=== PATIENT | female | born 1990 | race African-American/Black ===

== ENCOUNTER 2019-03-28 13:11 | Inpatient (IN) ==
[2019-03-28 13:47] LABS: Apearance,Urine CLEAR (Clear); Bilirubin,Urine Negative (Negative); Blood, Urine Negative (Negative); Glucose,Urine (UA) Negative (Negative); Ketones,Urine Negative (Negative); Mucus,Urine Occasional /LPF (Occasional); Nitrite,Urine Negative (Negative); Protein,Urine Negative; RBC,Urine 4 /HPF (0-4); Squamous Epithelial Cell,Urine Occasional /HPF (0-10); Urine Color Yellow (Yellow); Urine Specific Gravity 1.021 (1.001-1.035); Urine Urobilinogen < 2.0 EU/DL (0.2-1.0); WBC,Urine 1 /HPF (0-6)
[2019-03-28 15:38] LABS: Basophils % 0.5 % (0.0-0.8); Eosinophils # 0.1 10*3/uL (0.0-0.87); Eosinophils % 1.9 % (0.00-10.9); Hematocrit 36.5 VOL% (35.7-47.0); Hemoglobin 11.7 GM/DL (12.0-16.0); Immature Granulocytes Absolute 0.06 #; Lymphocytes # 1.8 10*3/uL (1.4-4.0); Lymphocytes % 29.9 % (21.3-54.2); Mean Corpuscular HGB Conc 32.1 GM/DL (32-36); Mean Corpuscular Volume 84.3 FL (87-102); Mean Platelet Volume 12.1 FL (9.6-12.0); Monocytes % 9.1 % (1.7-12.7); Neutrophils % 57.6 % (38.7-73.9); Platelet Count 170 T/CUMM (130-400); Red Blood Count 4.33 MC/CUMM (3.8-5.5); Red Cell Distribution Width 14.5 % (9.3-17.3); White Blood Count 6.2 T/CUMM (4-12)
[2019-03-28 15:47] LABS: INR 0.9; PT Patient Result 9.3 SECS (9.6-12.2)
[2019-03-28 16:03] LABS: Alanine Aminotransferase 16 U/L (13-56); Albumin 2.7 G/DL (3.4-5.0); Alkaline Phosphatase 108 U/L (45-117); Aspartate Amino Transferase 16 U/L (0-37); Bilirubin,Total < 0.39 MG/DL (0.2-1.0); Blood Urea Nitrogen 9 MG/DL (7-18); Calcium 8.4 MG/DL (8.5-10.1); Estimated Glom Filtration Rate 143 ML/MIN; Glucose 67 MG/DL (74-106); Osmolality,Calculated 273.5 MOS/KG (273-304); Total Protein 6.9 G/DL (6.4-8.3); Uric Acid 6.7 MG/DL (2.6-6.0)
[2019-03-28] MEDS ORDERED: BUTORPHANOL 2 MG/ML VIAL IV PRN (16:49)
[2019-03-28] MEDS ORDERED: ONDANSETRON 4 MG/2 ML VIAL IV PRN (16:49)
[2019-03-28] MEDS: LACTATED RINGERS 1,000 ML IV SCH ×2 (17:31→22:19)
[2019-03-28] MEDS ORDERED: ePHEDrine 50 MG/ML AMP IV PRN (21:28)
[2019-03-28] MEDS ORDERED: FAMOTIDINE 20 MG/2 ML VIAL IV ONE (21:28)
[2019-03-28] MEDS ORDERED: CITRIC ACID/SODIUM CITRATE 30 ML UDCUP PO ONE (21:28)
[2019-03-28] MEDS ORDERED: PROMETHAZINE 25 MG/1 ML VIAL IM ONE (21:28)
[2019-03-28] MEDS ORDERED: NALOXONE 0.4 MG/ML VIAL IV PRN (21:28)
[2019-03-28] MEDS ORDERED: LACTATED RINGERS 1,000 ML IV ONE (21:28)
[2019-03-28] MEDS ORDERED: diphenhydrAMINE 50 MG/1 ML VIAL IV PRN (21:28)
[2019-03-28] MEDS ORDERED: fentaNYL 2 MCG/ROPIV 0.2% EPID 100 ML EPIDURAL SCH (21:30)
[2019-03-28] MEDS ORDERED: LACTATED RINGERS 1,000 ML IV SCH (21:30)
[2019-03-28] MEDS ORDERED: MAGNESIUM SULF DRIP 40 GM/1,000 ML ML IV SCH (22:00)
[2019-03-28] MEDS: LABETALOL 100 MG TABLET PO SCH (22:17)
[2019-03-28] MEDS ORDERED: miSOPROStoL 200 MCG TABLET ONE (23:46)
[2019-03-28] MEDS ORDERED: TRANEXAMIC ACID 1,000 MG/10 ML VIAL ONE ×2 (23:46→23:47)
[2019-03-28] MEDS ORDERED: OXYTOCIN/LR 20 UNIT/1,000 ML BAG IV ONE ×2 (23:46→23:58)
[2019-03-28] MEDS ORDERED: METHYLERGONOVINE 0.2 MG/1 ML AMP ONE (23:47)
[2019-03-28] MEDS ORDERED: SODIUM CHLORIDE 0.9% 0 ML IV ONE (23:47)
[2019-03-28] MEDS ORDERED: CARBOPROST TROMETHAMINE 250 MCG/ML AMP IM ONE (23:48)
[2019-03-28] MEDS ORDERED: TERBUTALINE 1 MG/1 ML VIAL SUBCUT ONE (23:52)
[2019-03-29] MEDS ORDERED: TERBUTALINE 1 MG/1 ML VIAL SUBCUT ONE (00:55)
[2019-03-29] MEDS ORDERED: ceFAZolin 2,000 MG in PREMIX 1 EACH IV ONE (00:59)
[2019-03-29] MEDS ORDERED: TISSUE ADHESIVE 1 EACH APPLICATOR TOP ONE (02:12)
[2019-03-29] MEDS ORDERED: LIDOCAINE MPF 2% /EPI 20 ML VIAL ONE (02:29)
[2019-03-29] MEDS ORDERED: MIDAZOLAM 2 MG/2 ML VIAL ONE (02:29)
[2019-03-29 02:41] LABS: Cord Arterial Blood HCO3 16.3 MMOL/L
[2019-03-29 02:42] LABS: Cord Venous Blood HCO3 22.7 MMOL/L; Cord Venous Blood PCO2 49.5 MMHG; Cord Venous Blood PO2 23.8 MMHG
[2019-03-29] MEDS: HYDROmorphone 2 MG/1 ML VIAL IV SCH ×2 (03:22→08:30)
[2019-03-29] MEDS ORDERED: ACETAMINOPHEN INJ 1,000 MG in PREMIX 1 EACH IV ONE (04:38)
[2019-03-29] MEDS ORDERED: OXYTOCIN/LR 20 UNIT/1,000 ML BAG IV ONE (04:55)
[2019-03-29] MEDS ORDERED: ONDANSETRON 4 MG/2 ML VIAL IV PRN (04:55)
[2019-03-29] MEDS ORDERED: RHO(D) IMMUNE GLOBULIN 300 MCG SYRINGE IM ONE (04:55)
[2019-03-29] MEDS ORDERED: ACETAMINOPHEN 325 MG TABLET PO PRN (04:55)
[2019-03-29] MEDS ORDERED: LACTATED RINGERS 1,000 ML IV SCH (05:00)
[2019-03-29] MEDS: KETOROLAC 30 MG/1 ML VIAL IV SCH ×4 (05:05→23:26)
[2019-03-29] MEDS: IBUPROFEN 800 MG TABLET PO PRN (08:45)
[2019-03-29] MEDS: LABETALOL 100 MG TABLET PO SCH (08:48)
[2019-03-29] MEDS: MULTIVITAMIN (PRENATAL) TABLET PO SCH (08:48)
[2019-03-29] MEDS: DOCUSATE SODIUM 100 MG CAPSULE PO SCH ×2 (08:48→21:09)
[2019-03-29] MEDS: ceFAZolin 1,000 MG in SYRINGE 1 EACH IV SCH ×2 (09:35→17:33)
[2019-03-29 09:40] LABS: Basophils % 0.2 % (0.0-0.8); Eosinophils % 0.1 % (0.00-10.9); Hematocrit 29.8 VOL% (35.7-47.0); Hemoglobin 9.4 GM/DL (12.0-16.0); Immature Granulocytes % 0.5 %; Immature Granulocytes Absolute 0.05 #; Lymphocytes # 1.4 10*3/uL (1.4-4.0); Lymphocytes % 12.7 % (21.3-54.2); Mean Corpuscular HGB Conc 31.5 GM/DL (32-36); Mean Corpuscular Volume 85.1 FL (87-102); Mean Platelet Volume 11.4 FL (9.6-12.0); Monocytes % 7.4 % (1.7-12.7); Neutrophils % 79.1 % (38.7-73.9); Platelet Count 151 T/CUMM (130-400); Red Cell Distribution Width 14.6 % (9.3-17.3); White Blood Count 10.9 T/CUMM (4-12)
[2019-03-29] MEDS: SIMETHICONE CHEW 80 MG TABLET PO PRN ×2 (13:17→21:09)
[2019-03-29] MEDS: MAGNESIUM HYDROXIDE SUSP 30 ML UDCUP PO PRN ×2 (14:57→21:09)
[2019-03-30] MEDS: LABETALOL 100 MG TABLET PO SCH ×3 (00:47→20:51)
[2019-03-30 06:00] LABS: Basophils % 0.2 % (0.0-0.8); Eosinophils # 0.1 10*3/uL (0.0-0.87); Eosinophils % 0.7 % (0.00-10.9); Hematocrit 25.7 VOL% (35.7-47.0); Hemoglobin 8.3 GM/DL (12.0-16.0); Immature Granulocytes % 0.8 %; Immature Granulocytes Absolute 0.07 #; Lymphocytes # 1.5 10*3/uL (1.4-4.0); Lymphocytes % 17.5 % (21.3-54.2); Mean Corpuscular HGB Conc 32.3 GM/DL (32-36); Mean Corpuscular Volume 85.4 FL (87-102); Mean Platelet Volume 11.6 FL (9.6-12.0); Monocytes % 7.6 % (1.7-12.7); Neutrophils % 73.2 % (38.7-73.9); Platelet Count 143 T/CUMM (130-400); Red Blood Count 3.01 MC/CUMM (3.8-5.5); Red Cell Distribution Width 15.1 % (9.3-17.3); White Blood Count 8.7 T/CUMM (4-12)
[2019-03-30] MEDS: MAGNESIUM HYDROXIDE SUSP 30 ML UDCUP PO PRN ×3 (09:15→20:51)
[2019-03-30] MEDS: FERROUS SULFATE 325 MG TABLET PO SCH ×2 (09:15→20:51)
[2019-03-30] MEDS: DOCUSATE SODIUM 100 MG CAPSULE PO SCH ×2 (09:15→20:50)
[2019-03-30] MEDS: MULTIVITAMIN (PRENATAL) TABLET PO SCH (09:15)
[2019-03-30] MEDS ORDERED: MAGNESIUM CITRATE 300 ML BOTTLE PO ONE (12:31)
[2019-03-30] MEDS ORDERED: BISACODYL 10 MG SUPP RECTAL ONE (13:00)
[2019-03-30 13:35] LABS: Basophils % 0.2 % (0.0-0.8); Eosinophils # 0.1 10*3/uL (0.0-0.87); Eosinophils % 0.6 % (0.00-10.9); Hematocrit 28.5 VOL% (35.7-47.0); Hemoglobin 8.8 GM/DL (12.0-16.0); Immature Granulocytes % 0.7 %; Immature Granulocytes Absolute 0.07 #; Lymphocytes # 1.5 10*3/uL (1.4-4.0); Lymphocytes % 15.5 % (21.3-54.2); Mean Corpuscular HGB Conc 30.9 GM/DL (32-36); Mean Corpuscular Volume 87.7 FL (87-102); Mean Platelet Volume 10.8 FL (9.6-12.0); Monocytes % 7.1 % (1.7-12.7); Neutrophils % 75.9 % (38.7-73.9); Platelet Count 155 T/CUMM (130-400); Red Blood Count 3.25 MC/CUMM (3.8-5.5); Red Cell Distribution Width 15.2 % (9.3-17.3)
[2019-03-30 13:45] LABS: INR 0.9; PT Patient Result 10.1 SECS (9.6-12.2); Partial Thromboplastin Time 31.7 SECS (20.8-36.0)
[2019-03-30 13:54] LABS: Alanine Aminotransferase 13 U/L (13-56); Albumin 2.2 G/DL (3.4-5.0); Alkaline Phosphatase 79 U/L (45-117); Aspartate Amino Transferase 18 U/L (0-37); Bilirubin,Direct < 0.100 MG/DL (0.0-0.20); Blood Urea Nitrogen 6 MG/DL (7-18); Calcium 8.3 MG/DL (8.5-10.1); Estimated Glom Filtration Rate 122 ML/MIN; Glucose 87 MG/DL (74-106); Osmolality,Calculated 273.5 MOS/KG (273-304); Total Protein 6.1 G/DL (6.4-8.3); Uric Acid 6.2 MG/DL (2.6-6.0)
[2019-03-30 14:11] LABS: Apearance,Urine Slightly Hazy (Clear); Bilirubin,Urine Negative (Negative); Blood, Urine Large mg/dL (Negative); Glucose,Urine (UA) Negative (Negative); Ketones,Urine Negative (Negative); Mucus,Urine Occasional /LPF (Occasional); Nitrite,Urine Negative (Negative); Protein,Urine Negative; RBC,Urine 358 /HPF (0-4); Squamous Epithelial Cell,Urine Few /HPF (0-10); Urine Color Yellow (Yellow); Urine Specific Gravity 1.014 (1.001-1.035); Urine Urobilinogen < 2.0 EU/DL (0.2-1.0); WBC,Urine 6 /HPF (0-6)
[2019-03-30] MEDS: IBUPROFEN 800 MG TABLET PO PRN (20:57)
[2019-03-31 08:57] VITALS: BP 131/81
[2019-03-31] MEDS: IBUPROFEN 800 MG TABLET PO PRN (09:14)
[2019-03-31] MEDS: LABETALOL 100 MG TABLET PO SCH (09:14)
[2019-03-31] MEDS: FERROUS SULFATE 325 MG TABLET PO SCH (09:14)
[2019-03-31] MEDS: DOCUSATE SODIUM 100 MG CAPSULE PO SCH (09:14)
[2019-03-31] MEDS: MULTIVITAMIN (PRENATAL) TABLET PO SCH (09:15)
[2019-03-31] MEDS: SIMETHICONE CHEW 80 MG TABLET PO PRN (09:16)
== END 2019-03-31 12:00 | disposition home or self-care (01) | DRG 540 ==
LOC: N.LDOUT 13:11 → N.LD 13:13 → N.OB 03-29 14:46
PROVIDERS: ADMIT Obstetrics & Gynecology; ATTEND Obstetrics & Gynecology
PROC: LDCSECT (ICD-10-PCS; 2019-03-29 01:30)